=== PATIENT | male | born 1985 | race Caucasian/White ===

== ENCOUNTER 2017-01-11 12:43 | Inpatient (IN) | payer SELFPAY ==
[2017-01-11 13:41] LABS: Eosinophils % (Auto) 0.5 % (0.0-4.3); Hematocrit 44.6 % (35.5-45.6); Hemoglobin 14.9 gm/dl (11.8-15.2); Mean Corpuscular HGB Conc 34 % (32-34); Mean Corpuscular Hemoglobin 33 pg (28-32); Mean Corpuscular Volume 97 fl (84-94); Red Blood Count 4.59 M/mm3 (3.65-5.03); Red Cell Distribution Width 14.9 % (13.2-15.2); White Blood Count 6.6 K/mm3 (4.5-11.0)
[2017-01-11 13:47] LABS: Platelet Count 95 K/mm3 (140-440)
[2017-01-11 13:56] LABS: Alanine Aminotransferase 109 units/L (7-56); Albumin 4.4 g/dL (3.9-5); Albumin/Globulin Ratio 1.5 %; Alkaline Phosphatase 74 units/L (35-129); Anion Gap 17 mmol/L; BUN/Creatinine Ratio 34; Blood Urea Nitrogen 17 mg/dL (9-20); Calcium 8.8 mg/dL (8.4-10.2); Carbon Dioxide 24 mmol/L (22-30); Chloride 104.3 mmol/L (98-107); Glucose 94 mg/dL (75-100); Potassium 4.7 mmol/L (3.6-5.0); Sodium 141 mmol/L (137-145); Total Protein 7.4 g/dL (6.3-8.2)
--- NOTE | 2017-01-11 14:28 | Cat Scan Report ---
FINAL REPORT EXAM: CT HEAD/BRAIN WO CON HISTORY: shaking TECHNIQUE: CT head without contrast PRIORS: None. FINDINGS: No acute intra-axial or extra-axial hemorrhage is identified. There is no evidence of midline shift or mass effect. The ventricles and sulci are within normal limits. Morgan-white matter differentiation is intact. No acute parenchymal abnormalities seen. Bony calvarium is grossly intact. Visualized portions of the mastoids and paranasal sinuses are unremarkable. IMPRESSION: Negative CT head
[2017-01-11] MEDS ORDERED: VITAMIN B-1 100 MG, FOLVITE 1 MG, INFUVITE 10 ML in NACL 0.9% 1000 ML 1,000 ML IV ONE (16:00)
--- NOTE | 2017-01-11 16:21 | Emergency Department Report ---
HPI - General Chief Complaint: Neuro Symptoms/Deficit Time Seen by Provider: 01/11/17 15:06 - HPI HPI: This is a 31-year-old male presents to the emergency department with the complaint of a 2-3 day history of uncontrollable shakes. He has also had some intermittent confusion and some hallucinations. He says that sometimes it looks like it is raining when it is not raining outside. He denies any headache , chest pain, fever, nausea, vomiting. He denies any significant past medical history. He later does admit to a history of alcoholism and/or daily alcohol abuse. He says he will drink up to 18 beers a day but has not had any alcohol since , 4 days ago. He does not have a primary care physician and has not seen one for at least 3 years. He has not taken anything for his symptoms prior to presentation. ED Past Medical Hx - Past Medical History Previous Medical History?: Yes Additional medical history: pancreas - Surgical History Past Surgical History?: No - Social History Smoking Status: Current Every Day Smoker Substance Use Type: Alcohol ED Review of Systems ROS: Stated complaint: ABD PAIN/ALTERED MENTAL STATUS Other details as noted in HPI Comment: All other systems reviewed and negative Constitutional: denies: chills, fever Eyes: denies: eye pain, eye discharge, vision change ENT: denies: ear pain, throat pain Respiratory: denies: cough, shortness of breath, wheezing Cardiovascular: denies: chest pain, palpitations Gastrointestinal: denies: abdominal pain, nausea, diarrhea Genitourinary: denies: urgency, dysuria Musculoskeletal: denies: back pain, joint swelling, arthralgia Skin: denies: rash, lesions Neurological: other (tremors). denies: headache, weakness Psychiatric: visual hallucinations. denies: auditory hallucinations, homicidal thoughts, suicidal thoughts Physical Exam - Physical Exam Vital Signs: Vital Signs 01/11/17 13:14 Temperature 98.2 F Pulse Rate 86 Blood Pressure 123/83 O2 Sat by Pulse 99 Oximetry Physical Exam: GENERAL: The patient is well-developed well-nourished. HENT: Normocephalic. Atraumatic. Patient has moist mucous membranes. EYES: Extraocular motions are intact. Pupils equal reactive to light bilaterally. NECK: Supple. Trachea is midline. CHEST/LUNGS: Clear to auscultation. There is no respiratory distress noted. HEART/CARDIOVASCULAR: Regular. There is no tachycardia. There is no gallop rub or murmur. ABDOMEN: Abdomen is soft, nontender. Patient has normal bowel sounds. There is no abdominal distention. SKIN: There is some slight diaphoresis of the forehead. Otherwise skin is just warm no obvious rash. NEURO: Patient is awake and AAO 2-3. He is oriented to person and place and regarding time he is oriented to year and month but not day. Cranial nerves II through XII grossly intact. He has a bilateral upper extremity tremor that worsens with intention or movement. MUSCULOSKELETAL: There is no tenderness or deformity. There is no limitation range of motion. There is no evidence of acute injury. PSYCH: The patient appears to have occasional hallucination and goes back and forth between understanding Panamanian and appearing to only speak Nepali. ED Course Vital Signs 01/11/17 13:14 Temperature 98.2 F Pulse Rate 86 Blood Pressure 123/83 O2 Sat by Pulse 99 Oximetry ED Medical Decision Making - Lab Data Result diagrams: 01/11/17 13:25 01/11/17 13:25 - Radiology Data Radiology results: report reviewed EXAM: CT HEAD/BRAIN WO CON HISTORY: shaking TECHNIQUE: CT head without contrast PRIORS: None. FINDINGS: No acute intra-axial or extra-axial hemorrhage is identified. There is no evidence of midline shift or mass effect. The ventricles and sulci are within normal limits. Morgan-white matter differentiation is intact. No acute parenchymal abnormalities seen. Bony calvarium is grossly intact. Visualized portions of the mastoids and paranasal sinuses are unremarkable. IMPRESSION: Negative CT head Transcribed By: [facility] Dictated By: RADHA IGLESIAS MD Electronically Authenticated By: RADHA IGLESIAS MD Signed Date/Time: 01/11/17 1025 - Medical Decision Making The patient presents originally with some occasional confusion and concern for tremors. However once the patient let us know his history of alcoholism and the 3-4 day From the last time that he drank, his symptoms appear most consistent with withdrawal and DTs. He was placed on the CIWA protocol and his initial evaluation showed a score of 37. For this reason the patient most likely will require ICU admission but certainly requires admission to the hospital and has been accepted for admission by the hospitalist, Dr Feng. CT of the head did not show any bleed, shift, mass or any acute process. He was given IV fluid resuscitation as well as a banana bag that included multivitamins and thiamine. - Differential Diagnosis DTs, alcohol withdrawal, CVA, substance abuse, hypoglycemia Critical Care Time: No Critical care attestation.: If time is entered above; I have spent that time in minutes in the direct care of this critically ill patient, excluding procedure time. ED Disposition Clinical Impression: Delirium tremens Alcohol withdrawal Qualifiers: Complication of substance-induced condition: with delirium Qualified Code(s): F10.231 - Alcohol dependence with withdrawal delirium Altered mental status Qualifiers: Altered mental status type: transient alteration of awareness Qualified Code(s) : R40.4 - Transient alteration of awareness Disposition: DC-09 OP ADMIT IP TO THIS HOSP Is pt being admited?: Yes Condition: Serious Referrals: PRIMARY CARE, [Primary Care Provider] - 3-5 Days Time of Disposition: 17:19
[2017-01-11] MEDS: ATIVAN IV PRN ×4 (16:40→17:37)
[2017-01-11] MEDS ORDERED: KEPPRA 1,000 MG/NS 0.75% 100ML 1,000 MG/100 ML BAG IV ONE ×2 (17:42→18:18)
[2017-01-11] MEDS ORDERED: DIPRIVAN 10 MG/ML 1,000 MG/100 ML BOTTLE IV ONE (17:48)
[2017-01-11] MEDS ORDERED: NACL 0.9% 1000 ML 1,000 ML ONE (17:53)
[2017-01-11] MEDS: DIPRIVAN 10 MG/ML 1,000 MG/100 ML BOTTLE IV SCH ×2 (17:55→23:39)
[2017-01-11] MEDS ORDERED: VASELINE LIP THERAPY TP PRN (18:00)
[2017-01-11] MEDS ORDERED: ARTIFICIAL TEARS OPHTH OINT OU PRN (18:00)
[2017-01-11] MEDS ORDERED: ZEMURON IV ONE (18:00)
[2017-01-11] MEDS ORDERED: NACL 0.9% 1000 ML IV ONE (18:00)
--- NOTE | 2017-01-11 18:02 | History and Physical Report ---
History of Present Illness Chief complaint: uncontrollable shakes History of present illness: 29 year old man with past medical history of alcoholism. Patient drinks about 18 beers a day. He was brought in by coworker for uncontrolled shakes. Have not had any alcoholic beverages for 4 days. He went into work and he was shaking uncontrollably and looked very ill. Patient had his his coworker to bring him to the ER. While patient was in the ER he got worse he became agitated, combative and pulled out all his lines, he had 2 seizures he had to be intubated and sedated. Past History Past Medical History: other (etoh abuse) Past Surgical History: No surgical history Social history: alcohol abuse Family history: other (unknown) Medications and Allergies Allergies Allergy/AdvReac Type Severity Reaction Status Date / Time No Known Allergies Allergy Verified 01/11/17 13:13 Active Meds: Active Medications Thiamine HCl 100 mg/ Folic Acid 1 mg/ Multivitamins/Minerals 10 ml/ Sodium Chloride 1,011.2 mls @ 250 mls/hr IV ONCE.ED ONE Stop: 01/11/17 20:02 Last Admin: 01/11/17 17:06 Dose: 250 mls/hr Lorazepam (Ativan) 2 mg IV Q1HR PRN PRN Reason: CIWA-Ar 8-15 Last Admin: 01/11/17 17:37 Dose: 2 mg Lorazepam (Ativan) 4 mg IV Q1HR PRN PRN Reason: CIWA-Ar 16-25 Lorazepam (Ativan) 4 mg IV Q15MIN PRN PRN Reason: CIWA-Ar >25 Last Admin: 01/11/17 16:58 Dose: 4 mg Review of Systems ROS unobtainable: due to mental status Exam - Constitutional Vitals: Temp Pulse Resp BP Pulse Ox 98.2 F 86 123/83 99 01/11/17 13:14 01/11/17 13:14 01/11/17 13:14 01/11/17 13:14 General appearance: Present: no acute distress, well-nourished - EENT Eyes: Present: PERRL ENT: hearing intact, clear oral mucosa - Neck Neck: Present: supple, normal ROM - Respiratory Respiratory effort: normal Respiratory: bilateral: CTA - Cardiovascular Heart Sounds: Present: S1 & S2. Absent: rub, click - Extremities Extremities: pulses symmetrical, No edema Peripheral Pulses: within normal limits - Abdominal General gastrointestinal: Present: soft, non-tender, non-distended, normal bowel sounds Male genitourinary: Present: normal - Integumentary Integumentary: Present: clear, warm, dry - Neurologic Neurologic: moves all extremities, other (intubated and sedated) Results - Labs CBC & Chem 7: 01/11/17 13:25 01/11/17 13:25 Labs: Laboratory Last Values WBC 6.6 K/mm3 (4.5-11.0) 01/11/17 13:25 RBC 4.59 M/mm3 (3.65-5.03) 01/11/17 13:25 Hgb 14.9 gm/dl (11.8-15.2) 01/11/17 13:25 Hct 44.6 % (35.5-45.6) 01/11/17 13:25 MCV 97 fl (84-94) H 01/11/17 13:25 MCH 33 pg (28-32) H 01/11/17 13:25 MCHC 34 % (32-34) 01/11/17 13:25 RDW 14.9 % (13.2-15.2) 01/11/17 13:25 Plt Count 95 K/mm3 (140-440) L 01/11/17 13:25 Lymph % (Auto) 9.6 % (13.4-35.0) L 01/11/17 13:25 [place] % (Auto) 13.6 % (0.0-7.3) H 01/11/17 13:25 Eos % (Auto) 0.5 % (0.0-4.3) 01/11/17 13:25 Baso % (Auto) 1.0 % (0.0-1.8) 01/11/17 13:25 Lymph # 0.6 K/mm3 (1.2-5.4) L 01/11/17 13:25 [place] # 0.9 K/mm3 (0.0-0.8) H 01/11/17 13:25 Eos # 0.0 K/mm3 (0.0-0.4) 01/11/17 13:25 Baso # 0.1 K/mm3 (0.0-0.1) 01/11/17 13:25 Seg Neutrophils % 75.3 % (40.0-70.0) H 01/11/17 13:25 Seg Neutrophils # 5.0 K/mm3 (1.8-7.7) 01/11/17 13:25 Sodium 141 mmol/L (137-145) 01/11/17 13:25 Potassium 4.7 mmol/L (3.6-5.0) 01/11/17 13:25 Chloride 104.3 mmol/L (98-107) 01/11/17 13:25 Carbon Dioxide 24 mmol/L (22-30) 01/11/17 13:25 Anion Gap 17 mmol/L 01/11/17 13:25 BUN 17 mg/dL (9-20) 01/11/17 13:25 Creatinine 0.5 mg/dL (0.8-1.5) L 01/11/17 13:25 Estimated GFR > 60 ml/min 01/11/17 13:25 BUN/Creatinine Ratio 34 % 01/11/17 13:25 Glucose 94 mg/dL (75-100) 01/11/17 13:25 Calcium 8.8 mg/dL (8.4-10.2) 01/11/17 13:25 Magnesium 2.00 mg/dL (1.7-2.3) 01/11/17 13:41 Total Bilirubin 0.80 mg/dL (0.1-1.2) 01/11/17 13:25 AST 61 units/L (5-40) H 01/11/17 13:25 ALT 109 units/L (7-56) H 01/11/17 13:25 Alkaline Phosphatase 74 units/L (35-129) 01/11/17 13:25 Total Creatine Kinase 391 units/L (55-170) H 01/11/17 13:43 Total Protein 7.4 g/dL (6.3-8.2) 01/11/17 13:25 Albumin 4.4 g/dL (3.9-5) 01/11/17 13:25 Albumin/Globulin Ratio 1.5 % 01/11/17 13:25 Salicylates < 0.3 mg/dL (2.8-20.0) L 01/11/17 13:43 Acetaminophen < 15.0 ug/mL (10.0-30.0) 01/11/17 13:43 Plasma/Serum Alcohol < 0.01 gm% (0-0.07) 01/11/17 13:43 - Imaging and Cardiology CT Scan - head: image reviewed (no acute findings) Assessment and Plan Assessment and plan: 31 M with DTs Etoh abuse/withdrawal/Delireum tremens -intubated and sedated -had maxed out on propofol, but was still agitated -added versed drip and patient is improved -when weanable from vent will continue CIWA protocol -Banana bag ordered for patient TOxic metabolic encephalopathy due to DTs, rx underlying cause above Acute respiratory failure on MV <96 hours continue MV, assess for weaning daily Critical care time; 33 minutes
[2017-01-11] MEDS ORDERED: DULCOLAX PR PRN (18:26)
[2017-01-11] MEDS ORDERED: MILK OF MAGNESIA PO PRN (18:26)
[2017-01-11] MEDS ORDERED: ZOFRAN IV PRN (18:26)
[2017-01-11 18:56] LABS: Urine Drugs of Abuse Note Disclamer
[2017-01-11] MEDS ORDERED: [UNRECOGNIZED DRUG - OTHER] IV SCH (19:00)
[2017-01-11] MEDS ORDERED: FOLVITE IV SCH (19:00)
[2017-01-11] MEDS ORDERED: D5 IV SCH (19:00)
[2017-01-11] MEDS ORDERED: VITAMIN B1 IV SCH (19:00)
--- NOTE | 2017-01-11 19:11 | XRay Report ---
FINAL REPORT EXAM: XR CHEST 1V AP HISTORY: ETT placement TECHNIQUE: AP portable view of the chest PRIORS: None. FINDINGS: Lines, tubes, and devices: Endotracheal tube has been placed but terminates in the right mainstem bronchus. This should be pulled back at least 5 cm. Lungs and pleura: Trachea is normal in position. Lungs are clear of infiltrate, pleural effusion, vascular congestion, or pneumothorax. Cardiomediastinal silhouette: Cardiac and mediastinal silhouettes are unremarkable. Other: Bony structures are intact. IMPRESSION: Endotracheal tube terminating in the right mainstem bronchus. This should be pulled back at least 5 cm. No acute cardiopulmonary process seen.
[2017-01-11] MEDS ORDERED: VERSED IV ONE (19:17)
[2017-01-11] MEDS ORDERED: VERSED IV NR (19:17)
[2017-01-11 19:24] LABS: Bilirubin,Urine NEG (Negative); Blood,Urine SM (Negative); Ketones,Urine NEG (Negative); Leukocyte Esterase,Urine NEG (Negative); Nitrite,Urine NEG (Negative); Protein,Urine <15 mg/dL mg/dL (Negative); Urobilinogen,Urine < 2.0 mg/dL (<2.0); WBC,Urine < 1.0 /HPF (0.0-6.0)
[2017-01-11 19:26] LABS: ISTAT Base Excess -1; ISTAT HCO3 25.7; ISTAT PCO2 50.8 (35-45); ISTAT PH 7.311 (7.35-7.45); ISTAT PO2 391 (80-105); ISTAT SO2 100; ISTAT TCO2 27
[2017-01-11] MEDS ORDERED: MIDAZOLAM 100 MG in NACL 0.9% 80 ML IV SCH (20:00)
[2017-01-12 02:37] LABS: ISTAT Base Excess 3; ISTAT HCO3 28.3; ISTAT PCO2 52.1 (35-45); ISTAT PH 7.343 (7.35-7.45); ISTAT PO2 524 (80-105); ISTAT SO2 100; ISTAT TCO2 30
[2017-01-12] MEDS: DIPRIVAN 10 MG/ML 1,000 MG/100 ML BOTTLE IV SCH (03:59)
[2017-01-12] MEDS ORDERED: VERSED IV NR (05:00)
[2017-01-12] MEDS: ATIVAN IV PRN ×6 (05:30→15:32)
--- NOTE | 2017-01-12 07:47 | Progress Note ---
Assessment and Plan Assessment and plan: --Febrile illness; partly secondary to DTs, possible aspiration pneumonia, fall cultures, empiric antibiotics with Levaquin Aspiration precautions --Hypokalemia; replace per protocol and monitor levels --Toxic metabolic encephalopathy; multifactorial secondary to alcohol withdrawal , DTs, closely monitoring --Alcohol withdrawal symptoms/delirium tremens, IV fluids, thiamine and folic acid, multivitamins, [facility] protocol --Acute respiratory failure requiring intubation; now extubated Patient is saturating well on nasal cannula oxygen --Alcoholic liver disease; with elevated transaminases Closely monitor, supportive care, consider GI needed --History of chronic alcohol use; will evp general counsel the patient when he is more stable Patient may need alcohol rehabilitation once medically stable --Thrombocytopenia; probably secondary to chronic alcoholism, closely monitor --Ongoing tobacco use; smoking cessation counseling will be done when patient is medically stable, nicotine patch as needed --DVT prophylaxis with Lovenox The high probability of a clinically significant, sudden or life threatening deterioration of the [pulmonary, [employer]] system(s) required my full and direct attention, intervention and personal management. The aggregate critical care time was [31 ] minutes. This time is in addition to time spent performing reported procedures but includes the following: [x] Data Review and interpretation [x] Patient assessment and monitoring of vital signs [x] Documentation, counseling [x] Medication orders and management History Interval history: Patient seen and examined, medical records reviewed Patient is confused, tremulous, agitated On [facility] protocol Hospitalist Physical - Constitutional Vitals: Temp Pulse Resp BP Pulse Ox 98.2 F 106 H 18 99/80 98 01/11/17 13:14 01/12/17 06:31 01/12/17 06:31 01/12/17 06:31 01/12/17 06:31 General appearance: Present: mild distress, other (agitated and tremulous) - EENT Eyes: Present: PERRL, EOM intact - Neck Neck: Present: supple, normal ROM - Respiratory Respiratory effort: normal Respiratory: bilateral: diminished, negative: rales, rhonchi, wheezing - Cardiovascular Rhythm: regular Heart Sounds: Present: S1 & S2 - Extremities Extremities: no ischemia, No edema - Abdominal General gastrointestinal: soft, non-tender, non-distended, normal bowel sounds - Integumentary Integumentary: Present: clear, warm - Psychiatric Psychiatric: agitated, other (confused, tremulous) - Neurologic Neurologic: moves all extremities, other (tremulousness, agitation) Results - Labs CBC & Chem 7: 01/11/17 13:25 01/12/17 12:40 Labs: Laboratory Last Values WBC 6.6 K/mm3 (4.5-11.0) 01/11/17 13:25 RBC 4.59 M/mm3 (3.65-5.03) 01/11/17 13:25 Hgb 14.9 gm/dl (11.8-15.2) 01/11/17 13:25 Hct 44.6 % (35.5-45.6) 01/11/17 13:25 MCV 97 fl (84-94) H 01/11/17 13:25 MCH 33 pg (28-32) H 01/11/17 13:25 MCHC 34 % (32-34) 01/11/17 13:25 RDW 14.9 % (13.2-15.2) 01/11/17 13:25 Plt Count 95 K/mm3 (140-440) L 01/11/17 13:25 Lymph % (Auto) 9.6 % (13.4-35.0) L 01/11/17 13:25 [place] % (Auto) 13.6 % (0.0-7.3) H 01/11/17 13:25 Eos % (Auto) 0.5 % (0.0-4.3) 01/11/17 13:25 Baso % (Auto) 1.0 % (0.0-1.8) 01/11/17 13:25 Lymph # 0.6 K/mm3 (1.2-5.4) L 01/11/17 13:25 [place] # 0.9 K/mm3 (0.0-0.8) H 01/11/17 13:25 Eos # 0.0 K/mm3 (0.0-0.4) 01/11/17 13:25 Baso # 0.1 K/mm3 (0.0-0.1) 01/11/17 13:25 Seg Neutrophils % 75.3 % (40.0-70.0) H 01/11/17 13:25 Seg Neutrophils # 5.0 K/mm3 (1.8-7.7) 01/11/17 13:25 POC ABG pH 7.343 (7.35-7.45) L 01/12/17 00:16 POC ABG pCO2 52.1 (35-45) H 01/12/17 00:16 POC ABG pO2 524 (80-105) H 01/12/17 00:16 POC ABG HCO3 28.3 01/12/17 00:16 POC ABG Total CO2 30 01/12/17 00:16 POC ABG O2 Sat 100 01/12/17 00:16 POC ABG Base Excess 3 01/12/17 00:16 FiO2 100 % 01/12/17 00:16 Sodium 141 mmol/L (137-145) 01/11/17 13:25 Potassium 4.7 mmol/L (3.6-5.0) 01/11/17 13:25 Chloride 104.3 mmol/L (98-107) 01/11/17 13:25 Carbon Dioxide 24 mmol/L (22-30) 01/11/17 13:25 Anion Gap 17 mmol/L 01/11/17 13:25 BUN 17 mg/dL (9-20) 01/11/17 13:25 Creatinine 0.5 mg/dL (0.8-1.5) L 01/11/17 13:25 Estimated GFR > 60 ml/min 01/11/17 13:25 BUN/Creatinine Ratio 34 % 01/11/17 13:25 Glucose 94 mg/dL (75-100) 01/11/17 13:25 Calcium 8.8 mg/dL (8.4-10.2) 01/11/17 13:25 Magnesium 2.00 mg/dL (1.7-2.3) 01/11/17 13:41 Total Bilirubin 0.80 mg/dL (0.1-1.2) 01/11/17 13:25 AST 61 units/L (5-40) H 01/11/17 13:25 ALT 109 units/L (7-56) H 01/11/17 13:25 Alkaline Phosphatase 74 units/L (35-129) 01/11/17 13:25 Total Creatine Kinase 391 units/L (55-170) H 01/11/17 13:43 Total Protein 7.4 g/dL (6.3-8.2) 01/11/17 13:25 Albumin 4.4 g/dL (3.9-5) 01/11/17 13:25 Albumin/Globulin Ratio 1.5 % 01/11/17 13:25 Urine Color Red (Yellow) 01/11/17 Unknown Urine Turbidity Clear (Clear) 01/11/17 Unknown Urine pH 7.0 (5.0-7.0) 01/11/17 Unknown Ur Specific [place] 1.008 (1.003-1.030) 01/11/17 Unknown Urine Protein <15 mg/dl mg/dL (Negative) 01/11/17 Unknown Urine Glucose (UA) Neg mg/dL (Negative) 01/11/17 Unknown Urine Ketones Neg mg/dL (Negative) 01/11/17 Unknown Urine Blood Sm (Negative) 01/11/17 Unknown Urine Nitrite Neg (Negative) 01/11/17 Unknown Urine Bilirubin Neg (Negative) 01/11/17 Unknown Urine Urobilinogen < 2.0 mg/dL (<2.0) 01/11/17 Unknown Ur Leukocyte Esterase Neg (Negative) 01/11/17 Unknown Urine WBC (Auto) < 1.0 /HPF (0.0-6.0) 01/11/17 Unknown Urine RBC (Auto) 1.0 /HPF (0.0-6.0) 01/11/17 Unknown Salicylates < 0.3 mg/dL (2.8-20.0) L 01/11/17 13:43 Urine Opiates Screen Presumptive negative 01/11/17 Unknown Urine Methadone Screen Presumptive negative 01/11/17 Unknown Acetaminophen < 15.0 ug/mL (10.0-30.0) 01/11/17 13:43 Ur Barbiturates Screen Presumptive negative 01/11/17 Unknown Ur Phencyclidine Scrn Presumptive negative 01/11/17 Unknown Ur Amphetamines Screen Presumptive negative 01/11/17 Unknown U Benzodiazepines Scrn Presumptive negative 01/11/17 Unknown Urine Cocaine Screen Presumptive negative 01/11/17 Unknown U Marijuana (THC) Screen Presumptive negative 01/11/17 Unknown Drugs of Abuse Note Disclamer 01/11/17 Unknown Plasma/Serum Alcohol < 0.01 gm% (0-0.07) 01/11/17 13:43
--- NOTE | 2017-01-12 08:57 | XRay Report ---
Portable chest: Followup respiratory distress. The lungs are hypoventilated but generally clear. The platelike atelectasis seen previously at the left base on January 11 is no longer identified. The endotracheal tube has also been removed. The heart is normal in size and is no vascular congestion. Impressions: 1. Interval extubation. 2. Resolved left atelectasis.
[2017-01-12] MEDS: LOVENOX SUB-Q SCH (12:08)
[2017-01-12] MEDS: TYLENOL PO PRN ×2 (12:08→16:00)
[2017-01-12 13:16] LABS: Anion Gap 18 mmol/L; BUN/Creatinine Ratio 20; Blood Urea Nitrogen 8 mg/dL (9-20); Calcium 8.6 mg/dL (8.4-10.2); Carbon Dioxide 24 mmol/L (22-30); Glucose 103 mg/dL (75-100); Potassium 3.4 mmol/L (3.6-5.0); Sodium 137 mmol/L (137-145)
[2017-01-12] MEDS ORDERED: KCL 10MEQ/100ML 10 MEQ/100 ML BAG IV SCH (15:00)
[2017-01-12] MEDS ORDERED: Fluarix Quad 2017-2018(36 MOS+ IM ONE (15:13)
[2017-01-12] MEDS ORDERED: KCL 30 MEQ in NACL 0.9% 250ML 300 ML IV ONE (15:30)
[2017-01-12] MEDS: LEVAQUIN 750MG/150ML 750 MG/150 ML BAG IV SCH (16:51)
[2017-01-13] MEDS: TYLENOL PO PRN ×2 (04:07→18:19)
[2017-01-13 06:21] LABS: Basophils % (Auto) 0.4 % (0.0-1.8); Eosinophils % (Auto) 1.1 % (0.0-4.3); Hematocrit 45.5 % (35.5-45.6); Hemoglobin 15.6 gm/dl (11.8-15.2); Mean Corpuscular HGB Conc 34 % (32-34); Mean Corpuscular Hemoglobin 33 pg (28-32); Mean Corpuscular Volume 98 fl (84-94); Red Blood Count 4.67 M/mm3 (3.65-5.03); Red Cell Distribution Width 14.8 % (13.2-15.2); White Blood Count 7.8 K/mm3 (4.5-11.0)
[2017-01-13 06:32] LABS: Alanine Aminotransferase 84 units/L (7-56); Albumin 3.9 g/dL (3.9-5); Albumin/Globulin Ratio 1.3 %; Alkaline Phosphatase 54 units/L (35-129); Anion Gap 16 mmol/L; BUN/Creatinine Ratio 20; Bilirubin,Direct 0.2 mg/dL (0-0.2); Bilirubin,Indirect 0.8 mg/dL; Blood Urea Nitrogen 10 mg/dL (9-20); Calcium 8.5 mg/dL (8.4-10.2); Carbon Dioxide 24 mmol/L (22-30); Chloride 98.4 mmol/L (98-107); Glucose 123 mg/dL (75-100); Potassium 3.3 mmol/L (3.6-5.0); Sodium 135 mmol/L (137-145); Total Protein 6.9 g/dL (6.3-8.2)
[2017-01-13 06:45] LABS: Platelet Count 95 K/mm3 (140-440)
--- NOTE | 2017-01-13 09:04 | Progress Note ---
Assessment and Plan Assessment and plan: --Febrile illness; possible aspiration pneumonia, --Left sided pneumonia ; possible aspiration pneumonia , empiric antibiotics , cultures negative to date , supportive care Aspiration precautions --Hypokalemia; replace per protocol and monitor levels --Toxic metabolic encephalopathy; multifactorial secondary to alcohol withdrawal , DTs, neurologist and he improved --Alcohol withdrawal symptoms/delirium tremens, IV fluids, thiamine and folic acid, multivitamins, Requiring very little Ativan, DC CIWA protocol, given when necessary --Acute respiratory failure requiring intubation; s/p extubation Patient is saturating well on nasal cannula oxygen --Alcoholic liver disease; with elevated transaminases Closely monitor, supportive care, consider GI needed --History of chronic alcohol use; counseling done advised to quit alcohol intake Patient may need alcohol rehabilitation once medically stable --Thrombocytopenia; probably secondary to chronic alcoholism, closely monitor --Ongoing tobacco use; smoking cessation counseling will be done when patient is medically stable, nicotine patch as needed --DVT prophylaxis with Lovenox Patient is stable to be admitted to medical floor Ambulate as tolerated Possible discharge in 1-2 days if stable Hospitalist Physical - Constitutional Vitals: Temp Pulse Resp BP Pulse Ox 100.2 F H 104 H 20 127/76 93 01/13/17 00:00 01/13/17 03:00 01/13/17 04:07 01/13/17 03:00 01/13/17 03:00 General appearance: Present: no acute distress, well-nourished, other (alert awake oriented 3) - EENT Eyes: Present: PERRL, EOM intact - Neck Neck: Present: supple, normal ROM - Respiratory Respiratory effort: normal Respiratory: left: rhonchi, bilateral: diminished, negative: wheezing - Cardiovascular Rhythm: regular Heart Sounds: Present: S1 & S2 - Extremities Extremities: no ischemia, No edema Peripheral Pulses: within normal limits - Abdominal General gastrointestinal: soft, non-tender, non-distended, normal bowel sounds - Integumentary Integumentary: Present: clear, warm - Psychiatric Psychiatric: appropriate mood/affect, cooperative - Neurologic Neurologic: CNII-XII intact, moves all extremities Results - Labs CBC & Chem 7: 01/13/17 05:51 01/13/17 05:51 Labs: Laboratory Last Values WBC 7.8 K/mm3 (4.5-11.0) 01/13/17 05:51 RBC 4.67 M/mm3 (3.65-5.03) 01/13/17 05:51 Hgb 15.6 gm/dl (11.8-15.2) H 01/13/17 05:51 Hct 45.5 % (35.5-45.6) 01/13/17 05:51 MCV 98 fl (84-94) H 01/13/17 05:51 MCH 33 pg (28-32) H 01/13/17 05:51 MCHC 34 % (32-34) 01/13/17 05:51 RDW 14.8 % (13.2-15.2) 01/13/17 05:51 Plt Count 95 K/mm3 (140-440) L 01/13/17 05:51 Lymph % (Auto) 9.6 % (13.4-35.0) L 01/13/17 05:51 Reeves % (Auto) 12.7 % (0.0-7.3) H 01/13/17 05:51 Eos % (Auto) 1.1 % (0.0-4.3) 01/13/17 05:51 Baso % (Auto) 0.4 % (0.0-1.8) 01/13/17 05:51 Lymph # 0.7 K/mm3 (1.2-5.4) L 01/13/17 05:51 Reeves # 1.0 K/mm3 (0.0-0.8) H 01/13/17 05:51 Eos # 0.1 K/mm3 (0.0-0.4) 01/13/17 05:51 Baso # 0.0 K/mm3 (0.0-0.1) 01/13/17 05:51 Seg Neutrophils % 76.2 % (40.0-70.0) H 01/13/17 05:51 Seg Neutrophils # 6.0 K/mm3 (1.8-7.7) 01/13/17 05:51 POC ABG pH 7.343 (7.35-7.45) L 01/12/17 00:16 POC ABG pCO2 52.1 (35-45) H 01/12/17 00:16 POC ABG pO2 524 (80-105) H 01/12/17 00:16 POC ABG HCO3 28.3 01/12/17 00:16 POC ABG Total CO2 30 01/12/17 00:16 POC ABG O2 Sat 100 01/12/17 00:16 POC ABG Base Excess 3 01/12/17 00:16 FiO2 100 % 01/12/17 00:16 Sodium 135 mmol/L (137-145) L 01/13/17 05:51 Potassium 3.3 mmol/L (3.6-5.0) L 01/13/17 05:51 Chloride 98.4 mmol/L (98-107) 01/13/17 05:51 Carbon Dioxide 24 mmol/L (22-30) 01/13/17 05:51 Anion Gap 16 mmol/L 01/13/17 05:51 BUN 10 mg/dL (9-20) 01/13/17 05:51 Creatinine 0.5 mg/dL (0.8-1.5) L 01/13/17 05:51 Estimated GFR > 60 ml/min 01/13/17 05:51 BUN/Creatinine Ratio 20 % 01/13/17 05:51 Glucose 123 mg/dL (75-100) H 01/13/17 05:51 Calcium 8.5 mg/dL (8.4-10.2) 01/13/17 05:51 Phosphorus 2.40 mg/dL (2.5-4.5) L 01/13/17 05:51 Magnesium 2.00 mg/dL (1.7-2.3) 01/13/17 05:51 Total Bilirubin 1.00 mg/dL (0.1-1.2) 01/13/17 05:51 Direct Bilirubin 0.2 mg/dL (0-0.2) 01/13/17 05:51 Indirect Bilirubin 0.8 mg/dL 01/13/17 05:51 AST 28 units/L (5-40) 01/13/17 05:51 ALT 84 units/L (7-56) H 01/13/17 05:51 Alkaline Phosphatase 54 units/L (35-129) 01/13/17 05:51 Total Creatine Kinase 135 units/L (55-170) 01/12/17 12:40 Total Protein 6.9 g/dL (6.3-8.2) 01/13/17 05:51 Albumin 3.9 g/dL (3.9-5) 01/13/17 05:51 Albumin/Globulin Ratio 1.3 % 01/13/17 05:51 Urine Color Red (Yellow) 01/11/17 Unknown Urine Turbidity Clear (Clear) 01/11/17 Unknown Urine pH 7.0 (5.0-7.0) 01/11/17 Unknown Ur Specific Scheller 1.008 (1.003-1.030) 01/11/17 Unknown Urine Protein <15 mg/dl mg/dL (Negative) 01/11/17 Unknown Urine Glucose (UA) Neg mg/dL (Negative) 01/11/17 Unknown Urine Ketones Neg mg/dL (Negative) 01/11/17 Unknown Urine Blood Sm (Negative) 01/11/17 Unknown Urine Nitrite Neg (Negative) 01/11/17 Unknown Urine Bilirubin Neg (Negative) 01/11/17 Unknown Urine Urobilinogen < 2.0 mg/dL (<2.0) 01/11/17 Unknown Ur Leukocyte Esterase Neg (Negative) 01/11/17 Unknown Urine WBC (Auto) < 1.0 /HPF (0.0-6.0) 01/11/17 Unknown Urine RBC (Auto) 1.0 /HPF (0.0-6.0) 01/11/17 Unknown Salicylates < 0.3 mg/dL (2.8-20.0) L 01/11/17 13:43 Urine Opiates Screen Presumptive negative 01/11/17 Unknown Urine Methadone Screen Presumptive negative 01/11/17 Unknown Acetaminophen < 15.0 ug/mL (10.0-30.0) 01/11/17 13:43 Ur Barbiturates Screen Presumptive negative 01/11/17 Unknown Ur Phencyclidine Scrn Presumptive negative 01/11/17 Unknown Ur Amphetamines Screen Presumptive negative 01/11/17 Unknown U Benzodiazepines Scrn Presumptive negative 01/11/17 Unknown Urine Cocaine Screen Presumptive negative 01/11/17 Unknown U Marijuana (THC) Screen Presumptive negative 01/11/17 Unknown Drugs of Abuse Note Disclamer 01/11/17 Unknown Plasma/Serum Alcohol < 0.01 gm% (0-0.07) 01/11/17 13:43
[2017-01-13] MEDS ORDERED: K-DUR PO ONE (10:00)
[2017-01-13] MEDS: LOVENOX SUB-Q SCH (10:26)
--- NOTE | 2017-01-13 11:35 | XRay Report ---
FINAL REPORT EXAM: XR CHEST 1V AP HISTORY: follow up respiratory failure TECHNIQUE: A portable upright view the chest was submitted. Comparison is made study of 01/11/2017. FINDINGS: The heart size and mediastinum appear normal. The lungs are not congested. There is slight haziness in left lung base suggesting infiltrate. Pleural fluid is not seen. There EKG leads overlying the chest wall. The bones and soft tissues well maintained. IMPRESSION: Haziness in left lung base suggesting infiltrate.
[2017-01-13] MEDS ORDERED: Fluarix Quad 2017-2018(36 MOS+ IM ONE (12:00)
[2017-01-13] MEDS ORDERED: ATIVAN IV PRN (14:00)
[2017-01-13] MEDS: LEVAQUIN 750MG/150ML 750 MG/150 ML BAG IV SCH (17:05)
[2017-01-14 06:02] LABS: Magnesium 2.1 mg/dL (1.7-2.3); Phosphorous 3.1 mg/dL (2.5-4.5); Potassium 3.6 mmol/L (3.6-5.0)
--- NOTE | 2017-01-14 10:15 | Event Note ---
Date: 01/14/17 Initially consulted for ICU management but patient down-graded to floor from ED. Please re-consult if any pulmonary assistance is needed. Thanks.
--- NOTE | 2017-01-14 11:28 | XRay Report ---
PORTABLE CHEST INDICATION: Followup respiratory failure. COMPARISON: Yesterday. FINDINGS: Portable, frontal chest radiograph, 7:57 AM, 01/14/2017 demonstrates better inspiration with slightly crowded markings inferiorly. Otherwise clear lungs without pleural effusions or CHF. Normal cardiomediastinal silhouette. Intact bones. CONCLUSION: No significant acute chest process, as described. Thank you for the opportunity to participate in this patient's care.
[2017-01-14 12:02] VITALS: BP 122/70
--- NOTE | 2017-01-14 12:07 | Discharge Summary ---
Providers - Providers Date of Admission: 01/11/17 18:26 Date of discharge: 01/14/17 Attending physician: PATTY URENA 01/11/17 18:01 Consult to Dietitian/Nutrition [CONS] Routine Physician Instructions: Reason For Exam: Reason for Consult: Evaluate nutritional intake Primary care physician: [employer]END[employer] Hospitalization Reason for admission: acute respiratory failure/alcohol withdrawal Condition: Stable Hospital course: 29 year old man with past medical history of chronic alcohol use was admitted with alcohol witdrawal symptoms,acute respiratory failure ,intubated, symptomatically managed,weaned and extubated managed with CIWA protocol.Electrolytes monitored and corrected symptoms improved .counselling done,advised to quit alcohol and tobacco use. today patient is comfortable,no new complaints,vitals stable. Patient is stable at discharge discharge Diagnosis --Left aspiration pneumonia ; --Hypokalemia; corrected --Toxic metabolic encephalopathy; --Alcohol withdrawal symptoms/delirium tremens, --Acute respiratory failure requiring intubation; s/p extubation --Alcoholic liver disease; --History of chronic alcohol use; --Thrombocytopenia; --Ongoing tobacco use; smoking cessation counseling Disposition: - TO HOME OR SELFCARE Time spent for discharge: 32 min Core Measure Documentation - Palliative Care Palliative Care/ Comfort Measures: Not Applicable - Core Measures Any of the following diagnoses?: none Exam - Constitutional Vitals: Temp Pulse Resp BP Pulse Ox 99.6 F 70 20 119/72 96 01/14/17 07:35 01/14/17 07:35 01/14/17 07:35 01/14/17 07:35 01/14/17 07:35 General appearance: Present: no acute distress, well-nourished - EENT Eyes: Present: PERRL, EOM intact - Neck Neck: Present: supple, normal ROM - Respiratory Respiratory effort: normal Respiratory: negative: rales, rhonchi, wheezing - Cardiovascular Rhythm: regular Heart Sounds: Present: S1 & S2 - Extremities Extremities: no ischemia, No edema Peripheral Pulses: within normal limits - Abdominal General gastrointestinal: Present: soft, non-tender, non-distended, normal bowel sounds - Integumentary Integumentary: Present: clear, warm - Musculoskeletal Musculoskeletal: strength equal bilaterally, generalized weakness - Psychiatric Psychiatric: appropriate mood/affect, cooperative - Neurologic Neurologic: CNII-XII intact, moves all extremities Plan Activity: advance as tolerated, fall precautions Diet: regular Additional Instructions: Advised to quit alcohol intake. Thanks to attend [employer] support group, and significant alcohol rehabilitation. Strongly advised not to drive while under the influence of alcohol on up-to-date heavy machinary Follow up with: PRIMARY CARE, [Primary Care Provider] - 3-5 Days Prescriptions: Famotidine [Pepcid] 20 mg PO BID #30 tablet Folic Acid 1 tab PO QDAY 30 Days tab Thiamine [Vitamin B-1] 100 mg PO QDAY #30 tablet
[2017-01-14] MEDS: LOVENOX SUB-Q SCH (13:29)
[2017-01-14] MEDS ORDERED: LEVAQUIN PO SCH (14:00)
[2017-01-14] MEDS ORDERED: Fluarix Quad 2017-2018(36 MOS+ IM ONE (14:00)
[2017-01-15] MEDS ORDERED: FOLVITE PO SCH (10:00)
[2017-01-15] MEDS ORDERED: VITAMIN B-1 PO SCH (10:00)
== END 2017-01-14 16:17 | disposition home or self-care (01) | DRG 896 ==
LOC: ED 12:43 → CC1 18:26 → 3A 01-13 11:34
PROVIDERS: ADMIT Internal Medicine; ATTEND Internal Medicine
PROC: 4A033R1 Measurement of Arterial Saturation, Peripheral, Percutaneous Approach (ICD-10-PCS; principal; 2017-01-11)
PROC: 5A1935Z Respiratory Ventilation, Less than 24 Consecutive Hours (ICD-10-PCS; 2017-01-11)
PROC: 0BH17EZ Insertion of Endotracheal Airway into Trachea, Via Natural or Artificial Opening (ICD-10-PCS; 2017-01-11)
PROC: 3E0234Z Introduction of Serum, Toxoid and Vaccine into Muscle, Percutaneous Approach (ICD-10-PCS; 2017-01-14)
DX: F10.231 Alcohol dependence with withdrawal delirium (principal); G92 Toxic encephalopathy; J96.00 Acute respiratory failure, unspecified whether with hypoxia or hypercapnia; J18.9 Pneumonia, unspecified organism; F17.200 Nicotine dependence, unspecified, uncomplicated; E87.6 Hypokalemia; K70.9 Alcoholic liver disease, unspecified; D69.6 Thrombocytopenia, unspecified; Z23 Encounter for immunization
CPT/HCPCS: 36415; 36600; 70450; 71010; 80048; 80053; 80074; 80307; 80320; 81001; 82550; 82803; 83735; 84100; 84132; 85025; 87040; 87070; 87086; 87205; 90686; 94003; 96365; 96375; 96376; 99285; G0480; J1650; J1953; J1956; J2060; J2250; J2405; J2704; J3411; J3480; J7030; J7050